=== PATIENT | male | born 1995 | race Caucasian/White ===

== ENCOUNTER 2018-08-03 14:21 | Inpatient (IN) | payer SELFPAY ==
[~2018-08-03] VITALS: Ht 193 cm; Wt 78.5 kg
[2018-08-03] MEDS ORDERED: fentaNYL PF VIAL 100 MCG/2 ML VIAL IV ONE (16:30)
[2018-08-03] MEDS ORDERED: IV NORMAL SALINE 1000ML BAG 1,000 ML IV ONE (16:45)
[2018-08-03] MEDS ORDERED: ONDANSETRON PF 4 MG/2 ML VIAL. IV ONE (16:45)
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
[2018-08-03] MEDS ORDERED: fentaNYL PF VIAL 100 MCG/2 ML VIAL ONE (17:00)
[2018-08-03 17:49] LABS: BASO # 0.1 x10^3/uL (0.0-0.2); BASO % 0 % (0-3); EOS % 0 % (0-3); HEMOGLOBIN 15.3 g/dL (13.0-17.5); LYMPH % 8 % (24-48); MEAN CORPUSCULAR HEMOGLOBIN 31 pg (25-35); MEAN CORPUSCULAR HGB CONC 35 g/dL (31-37); MEAN CORPUSCULAR VOLUME 89 fL (79-100); MONO # 0.9 x10^3/uL (0.0-1.1); MONO % 7 % (0-9); NEUT # 10.8 x10^3uL (1.8-7.7); NEUT % 84 % (31-73); PLATELET COUNT 195 x10^3/uL (140-400); RED BLOOD COUNT 4.93 x10^6/uL (4.30-5.70); RED CELL DISTRIBUTION WIDTH 12.8 % (11.5-14.5); WHITE BLOOD COUNT 12.9 x10^3/uL (4.0-11.0)
--- NOTE | 2018-08-03 18:00 | RAD ---
EXAM: 1. CT HEAD WITHOUT CONTRAST. 2. CT ORBITS WITHOUT CONTRAST. 3. CT CERVICAL SPINE WITHOUT CONTRAST. HISTORY: Fall, head and facial trauma, loss of consciousness, neck pain. TECHNIQUE: Computed tomography of the head, orbits and cervical spine was performed without intravenous contrast. COMPARISON: None. FINDINGS: There is a small hemorrhagic contusion along the left temporal lobe measuring 1.7 x 1.4 cm. There is no associated mass effect. Hayden-white differentiation is otherwise preserved. The ventricles are normal in size and position. Note is made of a cavum vergae. The visualized paranasal sinuses appear clear. No fractures are appreciated about either orbit. The intraorbital soft tissues and both globes appear normal. The temporal bones are unremarkable. The calvarium reveals no suspicious lesions. Alignment is maintained. The craniocervical junction is unremarkable. No fractures are identified. Intervertebral disc heights are maintained. There is no prevertebral soft tissue swelling. There is no central canal stenosis or neural foraminal stenosis. IMPRESSION: 1. 1.7 cm hemorrhagic contusion along the left temporal lobe. 2. No fractures about the orbits or intraorbital injury. 3. No cervical fracture or malalignment. These findings were called to Jamin by Timoteo Bourne on 08/03/2018 at 5:55 PM. *One or more of the following individualized dose reduction techniques were utilized for this examination: 1. Automated exposure control. 2. Adjustment of the mA and/or kV according to patient size. 3. Use of iterative reconstruction technique. Electronically signed by: Yasir Bourne MD (08/03/2018 5:56 PM) [facility]
[2018-08-03 18:05] LABS: CALCIUM 9.2 mg/dL (8.5-10.1); CREATININE 0.8 mg/dL (0.7-1.3); POTASSIUM 3.2 mmol/L (3.5-5.1)
[2018-08-03 18:09] LABS: ALBUMIN 4.1 g/dL (3.4-5.0); ALBUMIN/GLOBULIN RATIO 1.3 (1.0-1.7); TOTAL BILIRUBIN 0.6 mg/dL (0.2-1.0); TOTAL PROTEIN 7.2 g/dL (6.4-8.2)
[2018-08-03 20:05] VITALS: BP 144/87
--- NOTE | 2018-08-03 20:05 | NUR ---
pt admitted to room 113 from ED at this time. Ccollar in place, to remain in place via Dr Carver as reported from ED nurse. VSS, on room air. neurologically intact. splint noted to left UE and right LE. both extremities WNL. admission completed without difficultly. mother at bedside, to stay with pt overnight. pt and mother oriented to plan of care, call light, unit routines and diet; both voice understanding. call light in reach, will continue to closely monitor.
[2018-08-03] MEDS ORDERED: ONDANSETRON PF 4 MG/2 ML VIAL. IV PRN (20:45)
[2018-08-03] MEDS ORDERED: ACETAMINOPHEN 325 MG TABLET. PO PRN (20:45)
[2018-08-03] MEDS: IV NORMAL SALINE 1000ML BAG 1,000 ML IV SCH (20:45)
[2018-08-03] MEDS: fentaNYL PF VIAL 100 MCG/2 ML VIAL IV PRN ×2 (20:47→22:11)
[2018-08-03 21:00] VITALS: BP 129/70
[2018-08-03] MEDS: FAMOTIDINE 20 MG TABLET. PO SCH (21:00)
[2018-08-03] MEDS ORDERED: MULTIVIT INFUSN,ADULT 4,VIT K 10 ML, THIAMINE INJ 100 MG, FOLIC ACID INJ 1 MG in IV NOR... IV ONE (21:00)
[2018-08-03 22:00] VITALS: BP 135/68
[2018-08-03 23:00] VITALS: BP 119/72
[2018-08-04] VITALS (16 sets, daily range): BP systolic 116–140; BP diastolic 60–84
[2018-08-04] MEDS: fentaNYL PF VIAL 100 MCG/2 ML VIAL IV PRN ×4 (05:10→11:13)
--- NOTE | 2018-08-04 08:20 | RAD ---
Left hand radiograph 08/03/2018 5:14 PM INDICATION: Left thumb pain COMPARISON: None available TECHNIQUE: 3 views of the left hand are provided. FINDINGS: There is no acute fracture or dislocation. Bone mineralization is within normal limits. Joint spaces are maintained. Regional soft tissues are within normal limits. There is no soft tissue gas or osseous erosion. IMPRESSION: No acute fracture or dislocation. Electronically signed by: Sole Iglesias MD (08/04/2018 8:17 AM) [email or web address]
--- NOTE | 2018-08-04 08:23 | RAD ---
EXAM: 3 views right ankle DATE: 08/03/2018 5:05 PM INDICATION: Right ankle pain COMPARISON: No Prior FINDINGS: No evidence of acute fracture or dislocation. Ankle mortise is congruent. Talar dome is intact. No significant soft tissue swelling. IMPRESSION: No evidence of acute fracture or dislocation. Electronically signed by: Jeffery Chaudhari MD (08/04/2018 8:20 AM) [id number]
--- NOTE | 2018-08-04 08:35 | RAD ---
Chest radiograph 08/03/2018 5:05 PM INDICATION: Right ankle pain, fall COMPARISON: None available TECHNIQUE: Portable frontal semi-upright view of the chest is provided. FINDINGS: The cardiomediastinal silhouette is within normal limits. There are no pleural effusions. There is no pulmonary vascular congestion. There is no pneumothorax. The lungs are clear. No significant osseous abnormality is identified. IMPRESSION: No acute cardiopulmonary process. Electronically signed by: Sole Iglesias MD (08/04/2018 8:32 AM) [email or web address]
[2018-08-04] MEDS: FAMOTIDINE 20 MG TABLET. PO SCH ×2 (09:00→21:34)
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
[2018-08-04] MEDS: IV NORMAL SALINE 1000ML BAG 1,000 ML IV SCH (10:03)
--- NOTE | 2018-08-04 11:51 | RAD ---
CT of the head without contrast, 08/04/2018: HISTORY: Follow-up hemorrhagic contusion Noncontrast scans were obtained and compared to a study from 08/03/2018. A small focus of increased density in the posterior aspect of left temporal lobe is unchanged. There is a small adjacent lucency compatible with edema. The findings are again compatible with a brain contusion. The ventricles are within normal limits in size. There is a cavum septum pellucidum et vergae, which is a normal variant. There is no shift of the midline structures. No abnormal extra axial fluid collection or mass is seen. No calvarial fracture is evident. IMPRESSION: Stable left temporal lobe contusion. PQRS Compliance Statement: One or more of the following individualized dose reduction techniques were utilized for this examination: 1. Automated exposure control 2. Adjustment of the mA and/or kV according to patient size 3. Use of iterative reconstruction technique Electronically signed by: Renzo Carpio MD (08/04/2018 11:48 AM) [facility]
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
--- NOTE | 2018-08-04 12:12 | PDOC ---
Provider Note Provider Note Patient seen and examined hemorrhagic contusion along the left temporal lobe f/u CT head reviewed, stable ok to feed and transfer to floor will repeat CT head in AM will follow full consult to follow NELSON CASILLAS MD August 04, 2018 12:12
[2018-08-04] MEDS ORDERED: MORPHINE SULFATE 4 MG/ML VIAL. IV PRN (12:45)
[2018-08-04] MEDS ORDERED: MORPHINE SULFATE 2 MG/ML VIAL. IV PRN (12:45)
[2018-08-04] MEDS: HYDROcodone/APAP 5/325MG 1 TAB TABLET PO PRN ×2 (14:02→18:54)
--- NOTE | 2018-08-04 15:04 | NUR ---
SW following for discharge planning. Chart reviewed, pt is from home with parents, room air. No SW needs at this time. SW will continue to follow for any discharge planning needs.
--- NOTE | 2018-08-04 22:50 | NUR ---
Pt complain of pain, not manage by morphine sulfate IV. Dr. Abel notified. Orders received. Will continue to monitor.
[2018-08-05 03:51] VITALS: BP 126/75
[2018-08-05] MEDS: HYDROcodone/APAP 5/325MG 1 TAB TABLET PO PRN ×3 (05:36→19:14)
[2018-08-05] MEDS: fentaNYL PF VIAL 100 MCG/2 ML VIAL IV PRN ×3 (05:37→21:49)
[2018-08-05 07:00] VITALS: BP 122/75
--- NOTE | 2018-08-05 08:50 | RAD ---
RS Compliance Statement: One or more of the following individualized dose reduction techniques were utilized for this examination: 1. Automated exposure control 2. Adjustment of the mA and/or kV according to patient size 3. Use of iterative reconstruction technique CT head without contrast 08/05/2018 8:00 AM INDICATION: Hemorrhagic contusion COMPARISON: CT head August 04, 2018 TECHNIQUE: Multiple axial CT images of the head were obtained from skull base through the vertex without intravenous contrast. FINDINGS: Head: There is no intraparenchymal hematoma along the left temporal lobe measuring 1.9 x 1.6 cm, stable. There is suggestion of extra-axial blood products along the left temporal convexity measuring maximally 4 mm, stable. There is associated cytotoxic edema. No significant midline shift. Suprasellar cistern is patent. There is a cavum septum pellucidum. No hydrocephalus. Posterior fossa is normal. No new intracranial hemorrhage. Orbits are normal in appearance. Paranasal sinuses are well aerated. IMPRESSION: Stable left temporal lobe intraparenchymal hemorrhage compatible with contusion. Minimal extra-axial blood products along the left temporal convexity appears stable. Electronically signed by: Sole Iglesias MD (08/05/2018 8:48 AM) [id number]
[2018-08-05] MEDS: FAMOTIDINE 20 MG TABLET. PO SCH ×2 (09:50→19:42)
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
[2018-08-05 11:00] VITALS: BP 121/69
[2018-08-05] MEDS ORDERED: MORPHINE SULFATE 4 MG/ML VIAL. IV PRN (13:00)
--- NOTE | 2018-08-05 13:05 | PDOC ---
PROGRESS NOTES Subjective Subjective Resting in bed headache has improved Objective Objective Vital Signs Date Time Temp Pulse Resp B/P (MAP) Pulse Ox O2 Delivery O2 Flow Rate FiO2 08/05/18 11:05 98 Room Air 08/05/18 11:00 98.3 64 22 121/69 (86) 98.3 Intake and Output 08/05/18 07:00 Intake Total 240 ml Output Total 600 ml Balance -360 ml Intake Oral 240 ml Output Urine Total 600 ml # Voids 1 Physical Exam General: Alert, Oriented X3, Cooperative, No acute distress Neuro: Normal speech Plan Plan of Care reviewed CT head from today, stable could dc from NS standpoint, will need f/u appt and CT head in 6 weeks, no driving Comment Review of Relevant I have reviewed the following items salomon (where applicable) has been applied. Labs Laboratory Tests Test 08/03/18 17:05 White Blood Count 12.9 x10^3/uL (4.0-11.0) Red Blood Count 4.93 x10^6/uL (4.30-5.70) Hemoglobin 15.3 g/dL (13.0-17.5) Hematocrit 44.0 % (39.0-53.0) Mean Corpuscular Volume 89 fL (79-100) Mean Corpuscular Hemoglobin 31 pg (25-35) Mean Corpuscular Hemoglobin Concent 35 g/dL (31-37) Red Cell Distribution Width 12.8 % (11.5-14.5) Platelet Count 195 x10^3/uL (140-400) Neutrophils (%) (Auto) 84 % (31-73) Lymphocytes (%) (Auto) 8 % (24-48) Monocytes (%) (Auto) 7 % (0-9) Eosinophils (%) (Auto) 0 % (0-3) Basophils (%) (Auto) 0 % (0-3) Neutrophils # (Auto) 10.8 x10^3uL (1.8-7.7) Lymphocytes # (Auto) 1.0 x10^3/uL (1.0-4.8) Monocytes # (Auto) 0.9 x10^3/uL (0.0-1.1) Eosinophils # (Auto) 0.0 x10^3/uL (0.0-0.7) Basophils # (Auto) 0.1 x10^3/uL (0.0-0.2) Sodium Level 140 mmol/L (136-145) Potassium Level 3.2 mmol/L (3.5-5.1) Chloride Level 101 mmol/L (98-107) Carbon Dioxide Level 28 mmol/L (21-32) Anion Gap 11 (6-14) Blood Urea Nitrogen 10 mg/dL (8-26) Creatinine 0.8 mg/dL (0.7-1.3) Estimated GFR (Cockcroft-Gault) 122.0 BUN/Creatinine Ratio 13 (6-20) Glucose Level 94 mg/dL (70-99) Calcium Level 9.2 mg/dL (8.5-10.1) Total Bilirubin 0.6 mg/dL (0.2-1.0) Aspartate Amino Transf (AST/SGOT) 24 U/L (15-37) Alanine Aminotransferase (ALT/SGPT) 41 U/L (16-63) Alkaline Phosphatase 92 U/L (46-116) Total Protein 7.2 g/dL (6.4-8.2) Albumin 4.1 g/dL (3.4-5.0) Albumin/Globulin Ratio 1.3 (1.0-1.7) Medications Current Medications Fentanyl Citrate (Fentanyl 2ml Vial) 50 mcg 1X ONCE IV ; Start 08/03/18 at 16:30; Stop 08/03/18 at 16:30; Status DC Ondansetron HCl (Zofran) 4 mg 1X ONCE IV Last administered on 08/03/18at 16:45; Start 08/03/18 at 16:45; Stop 08/03/18 at 18:00; Status DC Sodium Chloride 1,000 ml @ 1,000 mls/hr 1X ONCE IV Last administered on 08/03/18at 17:43; Start 08/03/18 at 16:45; Stop 08/03/18 at 18:00; Status DC Fentanyl Citrate (Fentanyl 2ml Vial) 100 mcg STK-MED ONCE .ROUTE ; Start 08/03/18 at 17:00; Stop 08/03/18 at 17:01; Status DC Fentanyl Citrate (Fentanyl 2ml Vial) 50 mcg PRN Q1HR PRN IV PAIN Last administered on 08/04/18at 11:13; Start 08/03/18 at 19:30; Stop 08/04/18 at 19:29; Status DC Sodium Chloride 1,000 ml @ 75 mls/hr [id number] IV Last administered on 08/04/18 10:03; Start 08/03/18 at 19:18; Stop 08/04/18 at 19:17; Status DC Ondansetron HCl (Zofran) 4 mg PRN Q6HRS PRN IV NAUSEA/VOMITING Last administered on 08/04/18 13:12; Start 08/03/18 at 20:45 Famotidine (Pepcid) 20 mg BID PO Last administered on 08/05/18 09:50; Start 08/03/18 at 21:00 Acetaminophen (Tylenol) 650 mg PRN Q6HRS PRN PO headache/temp; Start 08/03/18 at 20:45 Multivitamins 10 ml/Thiamine HCl 100 mg/Folic Acid 1 mg/Sodium Chloride 1,011.2 ml @ 1,000.088 mls/hr 1X ONCE IV Last administered on 08/03/18 21:16; Start 08/03/18 at 21:00; Stop 08/03/18 at 22:00; Status DC Acetaminophen/ Hydrocodone Bitart (Lortab 5/325) 1 tab PRN Q4HRS PRN PO MILD PAIN Last administered on 08/04/18 18:54; Start 08/04/18 at 12:15 Acetaminophen/ Hydrocodone Bitart (Lortab 5/325) 2 tab PRN Q4HRS PRN PO MODERATE - SEVERE PAIN Last administered on 08/05/18 09:51; Start 08/04/18 at 12:15 Morphine Sulfate (Morphine Sulfate) 2 mg PRN Q2HR PRN IV PAIN Last administered on 08/04/18 13:05; Start 08/04/18 at 12:45 Morphine Sulfate (Morphine Sulfate) 4 mg PRN Q2HR PRN IV PAIN; Start 08/04/18 at 12:45 Fentanyl Citrate (Fentanyl 2ml Vial) 50 mcg PRN Q2HR PRN IV PAIN Last administered on 08/05/18 05:37; Start 08/04/18 at 23:00 Vitals/I & O Vital Sign - Last 24 Hours 08/04/18 08/04/18 08/04/18 08/04/18 13:05 13:40 13:45 14:02 Temp 97.7 97.7 Pulse 71 Resp 17 18 B/P (MAP) 126/66 (86) Pulse Ox 95 98 95 95 O2 Delivery Room Air Room Air Room Air Room Air 08/04/18 08/04/18 08/04/18 08/04/18 15:00 18:54 19:00 19:54 Temp 98.0 98.6 98.0 98.6 Pulse 63 74 Resp 16 16 B/P (MAP) 126/63 (84) 128/82 (97) Pulse Ox 100 100 O2 Delivery Room Air Room Air Room Air Room Air 08/04/18 08/04/18 08/05/18 08/05/18 20:00 23:00 03:51 05:36 Temp 98.5 98.0 98.5 98.0 Pulse 71 65 Resp 16 16 B/P (MAP) 131/84 (100) 126/75 (92) Pulse Ox 97 99 O2 Delivery Room Air Room Air Room Air Room Air 08/05/18 08/05/18 08/05/18 08/05/18 05:37 06:07 07:00 07:30 Temp 98.1 98.1 Pulse 82 Resp 22 B/P (MAP) 122/75 (91) Pulse Ox 98 O2 Delivery Room Air Room Air Room Air Room Air 08/05/18 08/05/18 08/05/18 09:51 11:00 11:05 Temp 98.3 98.3 Pulse 64 Resp 22 B/P (MAP) 121/69 (86) Pulse Ox 98 97 98 O2 Delivery Room Air Room Air Room Air Intake and Output 08/04/18 08/04/18 08/05/18 15:00 23:00 07:00 Intake Total 120 ml 120 ml Output Total 600 ml 0 ml Balance -480 ml 120 ml PARVIN PATRICK [employer] August 05, 2018 13:05
[2018-08-05] MEDS ORDERED: POTASSIUM CHLORIDE 20 MEQ TABLET.ER. PO ONE (14:45)
--- NOTE | 2018-08-05 14:47 | NUR ---
SW following for discharge planning. Discussed with RN, had CT this morning. RN advised pt is not discharging today, due to Dr Howe wanting labs checked in the morning and a PT/OT eval, as well as a tox screen. SW met with pt to give self pay resources. SW will continue to follow.
[2018-08-05 15:00] VITALS: BP 114/76
[2018-08-05 15:34] LABS: BILIRUBIN,URINE NEGATIVE (NEG); CLARITY,URINE HAZY; COLOR,URINE YELLOW; NITRITE,URINE NEGATIVE (NEG); PROTEIN,URINE NEGATIVE (NEG-TRACE)
[2018-08-05 15:38] LABS: BACTERIA,URINE 0 /HPF (0-FEW); RBC,URINE 0 /HPF (0-2); SQUAMOUS EPITHELIAL CELL,UR FEW /LPF
[2018-08-05 15:59] LABS: BARBITURATES NEG (NEG); BENZODIAZEPINES NEG (NEG); CANNABINOIDS POS (NEG); COCAINE NEG (NEG); METHADONE NEG (NEG); OPIATES POS (NEG); PHENCYCLIDINE NEG (NEG)
[2018-08-05 16:00] LABS: AMPHETAMINE/METHAMPHETAMINE NEG (NEG)
[2018-08-05 19:20] VITALS: BP 114/71
--- NOTE | 2018-08-05 22:00 | NUR ---
Pt complain of constipation. Dr. Howe notified. Orders received. Will continue to monitor.
[2018-08-05] MEDS ORDERED: MAGNESIUM HYDROXIDE 2,400 MG/30 ML ORAL.SUSP. PO PRN (22:15)
[2018-08-05 23:23] VITALS: BP 123/69
[2018-08-06 03:01] VITALS: BP 123/76
[2018-08-06] MEDS: fentaNYL PF VIAL 100 MCG/2 ML VIAL IV PRN (03:05)
[2018-08-06] MEDS: HYDROcodone/APAP 5/325MG 1 TAB TABLET PO PRN ×4 (03:25→17:29)
[2018-08-06 06:59] LABS: BASO % 0 % (0-3); EOS # 0.1 x10^3/uL (0.0-0.7); EOS % 2 % (0-3); HEMATOCRIT 46.5 % (39.0-53.0); HEMOGLOBIN 16.4 g/dL (13.0-17.5); LYMPH # 1.1 x10^3/uL (1.0-4.8); LYMPH % 18 % (24-48); MEAN CORPUSCULAR HEMOGLOBIN 31 pg (25-35); MEAN CORPUSCULAR HGB CONC 35 g/dL (31-37); MEAN CORPUSCULAR VOLUME 89 fL (79-100); MONO # 0.4 x10^3/uL (0.0-1.1); MONO % 7 % (0-9); NEUT # 4.3 x10^3uL (1.8-7.7); NEUT % 73 % (31-73); PLATELET COUNT 198 x10^3/uL (140-400); RED BLOOD COUNT 5.23 x10^6/uL (4.30-5.70); RED CELL DISTRIBUTION WIDTH 12.8 % (11.5-14.5)
[2018-08-06 07:00] VITALS: BP 111/61
[2018-08-06 07:12] LABS: CALCIUM 9.6 mg/dL (8.5-10.1); CREATININE 0.9 mg/dL (0.7-1.3); GFR 106.5; POTASSIUM 3.7 mmol/L (3.5-5.1)
[2018-08-06] MEDS ORDERED: POTASSIUM CHLORIDE 20 MEQ TABLET.ER. PO SCH (08:00)
[2018-08-06] MEDS ORDERED: DOCUSATE SODIUM 100 MG CAPSULE. PO SCH (09:00)
[2018-08-06] MEDS: FAMOTIDINE 20 MG TABLET. PO SCH (09:45)
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
--- NOTE | 2018-08-06 10:42 | NUR ---
SW following for discharge planning. Discussed with RN, PT/OT working with pt today. Pt is self pay so does not qualify for any services upon discharge. Pt has received self pay resource packet. No further SW needs. Possible discharge today.
[2018-08-06 11:00] VITALS: BP 112/58
[2018-08-06 15:00] VITALS: BP 124/77
--- NOTE | 2018-08-06 15:40 | PDOC3 ---
Discharge Summary Date of Admission: August 04, 2018 Date of Discharge: August 06, 2018 Follow-Up: 3-5 days Admitting Diagnosis comment: discharge dx 1. 1.7 cm hemorrhagic contusion along the left temporal lobe. 2. No fractures about the orbits or intraorbital injury. 3. No cervical fracture or malalignment. 4. hypokalemia 5. THC use plan neurochecks q 4 hrs f/u ct head neurosurgery following 46 min pt exam, chart review, > 50% of time spent with exam, chart review, pt care coordination ///high risk patient Vitals Vitals Vital Signs Date Time Temp Pulse Resp B/P (MAP) Pulse Ox O2 Delivery O2 Flow Rate FiO2 08/06/18 09:44 98 Room Air 08/06/18 07:00 98.0 72 18 111/61 (78) 98.0 Physical Exam Physical Exam GEN.: Currently being examined , unchanged black eye, oriented normal speech HEENT: PERRLA, EOMI NECK: GOOD ROM LUNGS: Clear to auscultation without rhonchi or wheezing HEART: RRR, S1, S2 present. Peripheral pulses intact ABDOMEN: Soft, nontender. Positive bowel sounds no organomegaly EXTREMITIES: The right ankle has clean dry and intact bandaging as does the left wrist NEUROLOGIC: Normal speech, normal tone. A&O x 3 PSYCHIATRIC: He seems ANXOIUS SKIN: No ulcerations or rashes VASCULAR: Good capillary refill General: Alert, Oriented X3, Cooperative, mild distress Heart: Regular rate, Normal S1, Normal S2 Lungs: Clear Abdomen: Normal bowel sounds, Soft, No tenderness Extremities: No clubbing, No cyanosis, No edema, Normal pulses Brief Hospital Course Mr. Vela is a 23 old [sex] who presented with [ closed head injury, intracranial hemorrhage] CONDITION AT DISCHARGE: Improved Discharge Medications Current Medications Fentanyl Citrate (Fentanyl 2ml Vial) 50 mcg 1X ONCE IV ; Start 08/03/18 at 16:30; Stop 08/03/18 at 16:30; Status DC Ondansetron HCl (Zofran) 4 mg 1X ONCE IV Last administered on 08/03/18at 16:45; Start 08/03/18 at 16:45; Stop 08/03/18 at 18:00; Status DC Sodium Chloride 1,000 ml @ 1,000 mls/hr 1X ONCE IV Last administered on at 17:43; Start 08/03/18 at 16:45; Stop 08/03/18 at 18:00; Status DC Fentanyl Citrate (Fentanyl 2ml Vial) 100 mcg STK-MED ONCE .ROUTE ; Start 08/03/18 at 17:00; Stop 08/03/18 at 17:01; Status DC Fentanyl Citrate (Fentanyl 2ml Vial) 50 mcg PRN Q1HR PRN IV PAIN Last administered on 08/04/18at 11:13; Start 08/03/18 at 19:30; Stop 08/04/18 at 19:29; Status DC Sodium Chloride 1,000 ml @ 75 mls/hr [id number] IV Last administered on 08/04/18at 10:03; Start 08/03/18 at 19:18; Stop 08/04/18 at 19:17; Status DC Ondansetron HCl (Zofran) 4 mg PRN Q6HRS PRN IV NAUSEA/VOMITING Last administered on 08/04/18at 13:12; Start 08/03/18 at 20:45 Famotidine (Pepcid) 20 mg BID PO Last administered on 08/06/18at 09:45; Start 08/03/18 at 21:00 Acetaminophen (Tylenol) 650 mg PRN Q6HRS PRN PO headache/temp; Start 08/03/18 at 20:45 Multivitamins 10 ml/Thiamine HCl 100 mg/Folic Acid 1 mg/Sodium Chloride 1,011.2 ml @ 1,000.088 mls/hr 1X ONCE IV Last administered on 08/03/18at 21:16; Start 08/03/18 at 21:00; Stop 08/03/18 at 22:00; Status DC Acetaminophen/ Hydrocodone Bitart (Lortab 5/325) 1 tab PRN Q4HRS PRN PO MILD PAIN Last administered on 08/04/18 18:54; Start 08/04/18 at 12:15 Acetaminophen/ Hydrocodone Bitart (Lortab 5/325) 2 tab PRN Q4HRS PRN PO MODERATE - SEVERE PAIN Last administered on 5/8/19at 14:35; Start 08/04/18 at 12:15 Morphine Sulfate (Morphine Sulfate) 2 mg PRN Q2HR PRN IV MODERATE PAIN Last administered on 08/04/18at 13:05; Start 08/04/18 at 12:45 Morphine Sulfate (Morphine Sulfate) 4 mg PRN Q2HR PRN IV PAIN; Start 08/04/18 at 12:45; Stop 08/05/18 at 12:56; Status DC Fentanyl Citrate (Fentanyl 2ml Vial) 50 mcg PRN Q2HR PRN IV PAIN Last administered on 08/06/18at 03:05; Start 08/04/18 at 23:00 Morphine Sulfate (Morphine Sulfate) 4 mg PRN Q2HRS PRN IV SEVERE PAIN; Start 08/05/18 at 13:00 Potassium Chloride (Klor-Con) 40 meq 1X ONCE PO Last administered on 08/05/18at 15:10; Start 08/05/18 at 14:45; Stop 08/05/18 at 14:46; Status DC Potassium Chloride (Klor-Con) 20 meq [id number] PO Last administered on 08/06/18at 09:45; Start 08/06/18 at 08:00 Magnesium Hydroxide (Milk Of Magnesia) 2,400 mg PRN DAILY PRN PO CONSTIPATION Last administered on 08/05/18 22:29; Start 08/05/18 at 22:15 Docusate Sodium (Colace) 100 mg BID PO Last administered on 08/06/18 09:44; Start 08/06/18 at 09:00 Vital Signs Vital Signs Date Time Temp Pulse Resp B/P (MAP) Pulse Ox O2 Delivery O2 Flow Rate FiO2 08/06/18 14:35 98 Room Air 08/06/18 11:00 98.4 59 18 112/58 (76) 98.4 Labs Laboratory Tests Test 08/05/18 15:30 08/06/18 04:33 Urine Collection Type Unknown Urine Color Yellow Urine Clarity Hazy Urine pH 7.0 Urine Specific [place] 1.015 Urine Protein Negative mg/dL (NEG-TRACE) Urine Glucose (UA) Negative mg/dL (NEG) Urine Ketones (Stick) Negative mg/dL (NEG) Urine Blood Negative (NEG) Urine Nitrite Negative (NEG) Urine Bilirubin Negative (NEG) Urine Urobilinogen Dipstick 4.0 mg/dL (0.2 mg/dL) Urine Leukocyte Esterase Moderate (NEG) Urine RBC 0 /HPF (0-2) Urine WBC 11-20 /HPF (0-4) Urine Squamous Epithelial Cells Few /LPF Urine Bacteria 0 /HPF (0-FEW) Urine Mucus Mod /LPF Urine Opiates Screen Pos (NEG) Urine Methadone Screen Neg (NEG) Urine Barbiturates Neg (NEG) Urine Phencyclidine Screen Neg (NEG) Urine Amphetamine/Methamphetamine Neg (NEG) Urine Benzodiazepines Screen Neg (NEG) Urine Cocaine Screen Neg (NEG) Urine Cannabinoids Screen Pos (NEG) Urine Ethyl Alcohol Neg (NEG) White Blood Count 6.0 x10^3/uL (4.0-11.0) Red Blood Count 5.23 x10^6/uL (4.30-5.70) Hemoglobin 16.4 g/dL (13.0-17.5) Hematocrit 46.5 % (39.0-53.0) Mean Corpuscular Volume 89 fL (79-100) Mean Corpuscular Hemoglobin 31 pg (25-35) Mean Corpuscular Hemoglobin Concent 35 g/dL (31-37) Red Cell Distribution Width 12.8 % (11.5-14.5) Platelet Count 198 x10^3/uL (140-400) Neutrophils (%) (Auto) 73 % (31-73) Lymphocytes (%) (Auto) 18 % (24-48) Monocytes (%) (Auto) 7 % (0-9) Eosinophils (%) (Auto) 2 % (0-3) Basophils (%) (Auto) 0 % (0-3) Neutrophils # (Auto) 4.3 x10^3uL (1.8-7.7) Lymphocytes # (Auto) 1.1 x10^3/uL (1.0-4.8) Monocytes # (Auto) 0.4 x10^3/uL (0.0-1.1) Eosinophils # (Auto) 0.1 x10^3/uL (0.0-0.7) Basophils # (Auto) 0.0 x10^3/uL (0.0-0.2) Sodium Level 137 mmol/L (136-145) Potassium Level 3.7 mmol/L (3.5-5.1) Chloride Level 99 mmol/L (98-107) Carbon Dioxide Level 28 mmol/L (21-32) Anion Gap 10 (6-14) Blood Urea Nitrogen 10 mg/dL (8-26) Creatinine 0.9 mg/dL (0.7-1.3) Estimated GFR (Cockcroft-Gault) 106.5 Glucose Level 83 mg/dL (70-99) Calcium Level 9.6 mg/dL (8.5-10.1) Laboratory Tests Test 08/06/18 04:33 White Blood Count 6.0 x10^3/uL (4.0-11.0) Red Blood Count 5.23 x10^6/uL (4.30-5.70) Hemoglobin 16.4 g/dL (13.0-17.5) Hematocrit 46.5 % (39.0-53.0) Mean Corpuscular Volume 89 fL (79-100) Mean Corpuscular Hemoglobin 31 pg (25-35) Mean Corpuscular Hemoglobin Concent 35 g/dL (31-37) Red Cell Distribution Width 12.8 % (11.5-14.5) Platelet Count 198 x10^3/uL (140-400) Neutrophils (%) (Auto) 73 % (31-73) Lymphocytes (%) (Auto) 18 % (24-48) Monocytes (%) (Auto) 7 % (0-9) Eosinophils (%) (Auto) 2 % (0-3) Basophils (%) (Auto) 0 % (0-3) Neutrophils # (Auto) 4.3 x10^3uL (1.8-7.7) Lymphocytes # (Auto) 1.1 x10^3/uL (1.0-4.8) Monocytes # (Auto) 0.4 x10^3/uL (0.0-1.1) Eosinophils # (Auto) 0.1 x10^3/uL (0.0-0.7) Basophils # (Auto) 0.0 x10^3/uL (0.0-0.2) Sodium Level 137 mmol/L (136-145) Potassium Level 3.7 mmol/L (3.5-5.1) Chloride Level 99 mmol/L (98-107) Carbon Dioxide Level 28 mmol/L (21-32) Anion Gap 10 (6-14) Blood Urea Nitrogen 10 mg/dL (8-26) Creatinine 0.9 mg/dL (0.7-1.3) Estimated GFR (Cockcroft-Gault) 106.5 Glucose Level 83 mg/dL (70-99) Calcium Level 9.6 mg/dL (8.5-10.1) Allergies Allergies Coded Allergies Type Severity Reaction Last Updated Verified No Known Drug Allergies 08/03/18 No Disposition/Orders: D/C to Home Patient Instructions d/c planning 47 min EDITH MARAVILLA MD August 06, 2018 15:40
[2018-08-06] MEDS ORDERED: ACET325T9 PO (15:42)
[2018-08-06] MEDS ORDERED: FAMO20TA5 PO (15:42)
--- NOTE | 2018-08-06 15:42 | DISCH ---
DISCHARGE INSTRUCTIONS Condition on Discharge Condition on Discharge: Guarded Activity After Discharge Activity Instructions for Disc: Avoid exertion Lifting Instructions after Dis: No heavy lifting, No pulling or pushing, Do not lift >10 pounds Exercise Instruction after Dis: Walk 10 min, 3 x per day Driving Instructions after Dis: Do not drive Diet after Discharge Diet after Discharge: Regular Checks after Discharge Checks after discharge: Check blood press - daily Contacting the DR. after DC Call your doctor for: If your condition worsens EDITH MARAVILLA MD August 06, 2018 15:42
--- NOTE | 2018-08-06 17:58 | NUR ---
Pt was discharged to home at 1745 today in stable condition with all personal belongings after reviewing all pertinent information including education, medications, follow up and at home care. Pt was escorted by staff and family and driven home by his mom.
== END 2018-08-06 17:45 | disposition home or self-care (01) | DRG 84 ==
LOC: ER 14:21 → 1 WEST ICU 18:30 → 4 NORTH 08-04 14:20
PROVIDERS: ADMIT Internal Medicine; ATTEND Internal Medicine
DX: S06.329A Contusion and laceration of left cerebrum with loss of consciousness of unspecified duration, initial encounter (principal); W10.9XXA Fall (on) (from) unspecified stairs and steps, initial encounter; F12.90 Cannabis use, unspecified, uncomplicated; E87.6 Hypokalemia; Y93.89 Activity, other specified; Y92.89 Other specified places as the place of occurrence of the external cause; Z82.49 Family history of ischemic heart disease and other diseases of the circulatory system; Y99.8 Other external cause status
CPT/HCPCS: 36415; 70450; 70480; 71045; 72125; 73130; 73610; 80048; 80053; 80307; 81001; 85025; 87086; 96374; J2270; J2405; J3010; J7030; 99285-25

== ENCOUNTER 2018-08-11 19:38 | Emergency (ER) | payer SELFPAY ==
[~2018-08-11] VITALS: Ht 190.5 cm; Wt 79.4 kg
[~2018-08-11 19:38] MED LIST: ACET325T9 PO; FAMO20TA5 PO
[2018-08-11 20:39] VITALS: BP 112/73
--- NOTE | 2018-08-11 21:35 | PHYS DOC ---
Past Medical History Past Medical History: No Pertinent History (ROBBY COLEY APRN) Past Surgical History: No Surgical History (ROBBY COLEY APRN) Alcohol Use: Occasionally Drug Use: None (ROBBY COLEY APRN) Adult General Chief Complaint Chief Complaint: BACK PAIN - NO INJURY HPI HPI Patient is a 23-year-old male who presents to ER with sacrum pain radiating down the left leg. He was recently admitted to the hospital after celebrating his 23st birthday and had a fall down cement steps and had several orthopedic injuries and an intracranial bleed. He did not have the symptom he presents with on discharge from the hospital on Saturday but they started after discharge. He also had periumbilical abdominal pain and has not defecated in 3 days. He rates his pain as 10/10 and character as throbbing/aching. Has tried Tylenol and Ibuprofen at home and it is not helping. (ROBBY COLEY APRN) Review of Systems Review of Systems Constitutional: Denies fever or chills [] Eyes: Denies change in visual acuity, redness, or eye pain [] HENT: Denies nasal congestion or sore throat [] Respiratory: Denies cough or shortness of breath [] Cardiovascular: No additional information not addressed in HPI [] GI: Report periumbilical abdominal pain but denies nausea, vomiting, bloody stools or diarrhea [] : Denies dysuria or hematuria [] Musculoskeletal: Reports back pain in the sacral area radiating down the left leg or joint pain [] Integument: Denies rash or skin lesions [] Neurologic: Denies headache, focal weakness or sensory changes [] Endocrine: Denies polyuria or polydipsia [] Complete systems were reviewed and found to be within normal limits, except as documented in this note. (ROBBY COLEY APRN) Current Medications Current Medications Current Medications Medications (Trade) Dose Ordered Sig/Tong Start Time Stop Time Status Last Admin Dose Admin Cyclobenzaprine HCl (Flexeril) 10 mg 1X ONCE 08/11/18 22:00 08/11/18 22:01 DC 08/11/18 21:56 10 MG (ERICKA TALBOT MD) Allergies Allergies Allergies Coded Allergies Type Severity Reaction Last Updated Verified No Known Drug Allergies 08/03/18 No (ERICKA TALBOT MD) Physical Exam Physical Exam Constitutional: Well developed, well nourished, no acute distress, non-toxic appearance. [] HENT: Normocephalic, atraumatic, bilateral external ears normal, oropharynx moist, no oral exudates, nose normal. [] Eyes: PERRLA, EOMI, conjunctiva normal, no discharge. [] Neck: Normal range of motion, no tenderness, supple, no stridor. [] Cardiovascular:Heart rate regular rhythm, no murmur [] Lungs & Thorax: Bilateral breath sounds clear to auscultation [] Abdomen: Bowel sounds normal, soft, periumbilical tenderness, no masses, no pulsatile masses. [] Skin: Warm, dry, no erythema, no rash. [] Back: No tenderness except to sacrum, no CVA tenderness. [] Extremities: No tenderness, no cyanosis, no clubbing, ROM intact, no edema. [] Neurologic: Alert and oriented X 3, normal motor function, normal sensory function, no focal deficits noted. [] Psychologic: Affect normal, judgement normal, mood normal. [] (ROBBY COLEY APRN) Current Patient Data Vital Signs Vital Signs Date Time Temp Pulse Resp B/P (MAP) Pulse Ox O2 Delivery O2 Flow Rate FiO2 08/11/18 20:39 98.8 99 24 112/73 (86) 97 Room Air 98.8 (ERICKA TALBOT MD) EKG EKG [] (ROBBY COLEY APRN) Radiology/Procedures Radiology/Procedures []PATIENT: LUCILA TREVIZOACCOUNT: [id number]#: [id number] : 1995 LOCATION: ER AGE: 23 SEX: M EXAM STATUS: REG ER ORD. PHYSICIAN: ROBBY COLEY APRN REASON: periumbilical pain; r/o constipation PROCEDURE: ABDOMEN SUPINE & UPRIGHT Two-view abdomen radiographs 08/11/2018 CLINICAL HISTORY: Periumbilical pain. Constipation. Supine and erect AP digital radiographs of the abdomen/pelvis were obtained. The lung bases are clear. The abdominal bowel gas pattern is nonobstructive. A moderate amount of stool is seen throughout the colon. There is no evidence of free air. No radiopaque calculus is seen. The osseous structures are grossly intact. IMPRESSION: Nonobstructive bowel gas pattern. A moderate amount of stool is seen throughout the colon. Electronically signed by: Jadon Esquivel MD (08/11/2018 10:09 PM) [facility] Prelim rad of Sacrum x-ray by Dr. Talbot No acute fracture or dislocation. PATIENT: LUCILA TREVIZO ACCOUNT: [id number] : 1995 LOCATION: ER AGE: 23 SEX: M EXAM STATUS: REG ER ORD. PHYSICIAN: ROBBY COLEY APRN REASON: periumbilical pain; r/o constipation PROCEDURE: SACRUM & COCCYX 3V Three-view sacrum/coccygeal radiographs 08/11/2018 CLINICAL HISTORY: Sacral/coccygeal pain. 2 AP and a lateral digital radiographs of the sacrum/coccyx were obtained. No sacral or coccygeal fracture is noted. No significant degenerative changes are seen involving either SI joint. A moderate amount of stool is seen involving the rectum. IMPRESSION: No acute abnormality is seen. Electronically signed by: Jadon Esquivel MD (08/11/2018 10:11 PM) [facility] (ROBBY COLEY APRN) Course & Med Decision Making Course & Med Decision Making Pertinent Labs and Imaging studies reviewed. (See chart for details) Will get x-ray of abdomen to check for constipation, x-ray of sacrum and give Flexeril to see if helps pain. Appears to have constipation that could be causing the sciatica. Recommended to patient over the counter Miralax and Enema. Will prescribe flexeril to help with sciatica until constipation clears up. (ROBBY COLEY APRN) Course & Med Decision Making Staff Physician Addendum: I was working in the ER during the course of this patient's visit. I was available for consultation as needed, but I was not directly involved in the care of this patient. (ERICKA TALBOT MD) Dragon Disclaimer Dragon Disclaimer This electronic medical record was generated, in whole or in part, using a voice recognition dictation system. (ROBBY COLEY APRN) Departure Departure Impression: Primary Impression: Constipation Additional Impression: Sciatica Disposition: 01 HOME, SELF-CARE Condition: STABLE Referrals: NO PCP (PCP) Patient Instructions: Constipation, Adult, Sciatica Additional Instructions: Please get over the counter Miralax and Enema if needed. Take Flexeril as needed for sciatica pain. Scripts Cyclobenzaprine Hcl (CYCLOBENZAPRINE HCL) 10 Mg Tablet 1 TAB PO TID PRN for MUSCLE SPASMS, #20 TAB Prov: ROBBY COLEY APRN 08/11/18 Problem Qualifiers Primary Impression: Constipation Constipation type: drug induced constipation Qualified Codes: K59.03 - Drug induced constipation Additional Impression: Sciatica Laterality: left Qualified Codes: M54.32 - Sciatica, left side ROBBY COLEY APRN August 11, 2018 21:35 ERICKA TALBOT MD August 12, 2018 06:38
[2018-08-11] MEDS ORDERED: CYCLOBENZAPRINE 10 MG TABLET. PO ONE (22:00)
--- NOTE | 2018-08-11 22:13 | RAD ---
Two-view abdomen radiographs 08/11/2018 CLINICAL HISTORY: Periumbilical pain. Constipation. Supine and erect AP digital radiographs of the abdomen/pelvis were obtained. The lung bases are clear. The abdominal bowel gas pattern is nonobstructive. A moderate amount of stool is seen throughout the colon. There is no evidence of free air. No radiopaque calculus is seen. The osseous structures are grossly intact. IMPRESSION: Nonobstructive bowel gas pattern. A moderate amount of stool is seen throughout the colon. Electronically signed by: Jadon Esquivel MD (08/11/2018 10:09 PM) [facility]
--- NOTE | 2018-08-11 22:14 | RAD ---
Three-view sacrum/coccygeal radiographs 08/11/2018 CLINICAL HISTORY: Sacral/coccygeal pain. 2 AP and a lateral digital radiographs of the sacrum/coccyx were obtained. No sacral or coccygeal fracture is noted. No significant degenerative changes are seen involving either SI joint. A moderate amount of stool is seen involving the rectum. IMPRESSION: No acute abnormality is seen. Electronically signed by: Jadon Esquivel MD (08/11/2018 10:11 PM) [facility]
[2018-08-11] MEDS ORDERED: CYCL10TA2 PO (22:19)
== END 2018-08-11 22:20 | disposition home or self-care (01) ==
LOC: ER 19:38
DX: K59.03 Drug induced constipation (principal); M54.32 Sciatica, left side; M53.3 Sacrococcygeal disorders, not elsewhere classified; W10.8XXA Fall (on) (from) other stairs and steps, initial encounter; Y93.89 Activity, other specified; Y92.89 Other specified places as the place of occurrence of the external cause; Y99.8 Other external cause status
CPT/HCPCS: 72220; 74021; 99284

== ENCOUNTER 2018-10-28 18:48 | Emergency (ER) | payer SELFPAY ==
[~2018-10-28] VITALS: Ht 188 cm; Wt 84.4 kg
[~2018-10-28 18:48] MED LIST changes: +CYCL10TA2 PO
[2018-10-28 19:51] VITALS: BP 134/84
[2018-10-28] MEDS ORDERED: LIDOCAINE 1% PF 2 ML VIAL. INJ ONE (20:00)
[2018-10-28] MEDS ORDERED: NEOMY/BACITR/POLYMYXIN OINT PACKET. TP ONE (20:15)
[2018-10-28] MEDS ORDERED: DIPHTH,PERTUSS(ACELL),TET TOX 0.5 ML DISP.SYRIN. VAX IM ONE (21:30)
--- NOTE | 2018-10-28 21:35 | PHYS DOC ---
Past Medical History Past Medical History: Other Additional Past Medical Histor: brain bleed 3 mons ago. Past Surgical History: No Surgical History Alcohol Use: None Drug Use: None Adult General Chief Complaint Chief Complaint: LACERATION/AVULSION HPI HPI Patient is a 23 year old male who presents to the ER with complaints of a laceration to his right index finger on the palmar surface proximal to the PIP. He is unsure of when his last tetanus shot was. Pt states that he was helping to life a garage door when the handle broke and cut his finger. Review of Systems Review of Systems Constitutional: Denies fever or chills [] Eyes: Denies change in visual acuity, redness, or eye pain [] HENT: Denies nasal congestion or sore throat [] Respiratory: Denies cough or shortness of breath [] Cardiovascular: No additional information not addressed in HPI [] GI: Denies abdominal pain, nausea, vomiting, bloody stools or diarrhea [] : Denies dysuria or hematuria [] Musculoskeletal: Denies back pain or joint pain [] Integument: Denies rash or skin lesions [] Neurologic: Denies headache, focal weakness or sensory changes [] Endocrine: Denies polyuria or polydipsia [] All other systems were reviewed and found to be within normal limits, except as documented in this note. Current Medications Current Medications Current Medications Medications (Trade) Dose Ordered Sig/Tong Start Time Stop Time Status Last Admin Dose Admin Lidocaine HCl (Xylocaine-Mpf 1% 2ml Vial) 4 ml 1X ONCE 10/28/18 20:00 10/28/18 20:01 DC Neomycin/ Polymyxin/ Bacitracin (Triple Antibiotic Ointment) 1 pkt 1X ONCE 10/28/18 20:15 10/28/18 20:16 DC Allergies Allergies Allergies Coded Allergies Type Severity Reaction Last Updated Verified No Known Drug Allergies 08/03/18 No Physical Exam Physical Exam Constitutional: Well developed, well nourished, no acute distress, non-toxic appearance. [] HENT: Normocephalic, atraumatic, bilateral external ears normal, oropharynx moist, no oral exudates, nose normal. [] Eyes: PERRLA, EOMI, conjunctiva normal, no discharge. [] Neck: Normal range of motion, no tenderness, supple, no stridor. [] Cardiovascular:Heart rate regular rhythm, no murmur [] Lungs & Thorax: Bilateral breath sounds clear to auscultation [] Abdomen: Bowel sounds normal, soft, no tenderness, no masses, no pulsatile masses. [] Skin: Warm, dry, no erythema, no rash. [] Back: No tenderness, no CVA tenderness. [] Extremities: No tenderness, no cyanosis, no clubbing, ROM intact, no edema. [] Neurologic: Alert and oriented X 3, normal motor function, normal sensory function, no focal deficits noted. [] Psychologic: Affect normal, judgement normal, mood normal. [] Current Patient Data Vital Signs Vital Signs Date Time Temp Pulse Resp B/P (MAP) Pulse Ox O2 Delivery O2 Flow Rate FiO2 10/28/18 19:51 98.0 90 18 134/84 (101) 98 Room Air 98.0 EKG EKG [] Radiology/Procedures Radiology/Procedures [] Course & Med Decision Making Course & Med Decision Making Pertinent Labs and Imaging studies reviewed. (See chart for details) [] Dragon Disclaimer Dragon Disclaimer This electronic medical record was generated, in whole or in part, using a voice recognition dictation system. Departure Departure Impression: Primary Impression: Laceration of right index finger w/o foreign body w/o damage to nail Additional Impression: Need for tetanus, diphtheria, and acellular pertussis (Tdap) vaccine Disposition: 01 HOME, SELF-CARE Condition: STABLE Referrals: NO PCP (PCP) Patient Instructions: Laceration Care, Adult, [id number], VIS, Tetanus, Diphtheria, and Pertussis (Tdap) - CDC Additional Instructions: TYlenol or ibuprofen as needed for pain. Keep the area clean and dry. Apply a clean bandage and antibiotic ointment twice daily as needed. Wear the finger splint provided until sutures are removed. Return to the ER or see your primary care doctor in 10-14 days to have sutures removed. Return sooner if symptoms worsen. Laceration/Wound Repair Laceration/Wound Repair : Wound Location: upper extremity (right index finger) Wound's Depth, Shape: superficial Wound Length (cm): 3 Wound Explored: clean Irrigated w/ Saline (ccs): 100 Betadine Prep?: No Anesthesia: 1% Lidocaine Volume Anesthetic (ccs): 4 Wound Debrided: minimal Wound Repaired With: sutures Suture Size/Type: 4:0 (ethilon) Number of Sutures: 4 Layer Closure?: No Sterile Dressing Applied?: No Splint Applied?: Yes (aluminum finger splint) Sling Applied?: No Progress pt tolerated procedure well, minimal blood loss, no complications Problem Qualifiers Primary Impression: Laceration of right index finger w/o foreign body w/o damage to nail Encounter type: initial encounter Qualified Codes: S61.210A - Laceration without foreign body of right index finger without damage to nail, initial encounter [facility] DIRECT[facility] Oct 28, 2018 21:35
== END 2018-10-28 21:58 | disposition home or self-care (01) ==
LOC: ER 18:48
DX: S61.210A Laceration without foreign body of right index finger without damage to nail, initial encounter (principal); Y28.8XXA Contact with other sharp object, undetermined intent, initial encounter; Y93.89 Activity, other specified; Y92.89 Other specified places as the place of occurrence of the external cause; Y99.8 Other external cause status
CPT/HCPCS: 12002; 90471; 90715; 99283

== ENCOUNTER 2019-06-27 07:35 | Emergency (ER) | payer SELFPAY ==
[~2019-06-27] VITALS: Ht 170.2 cm; Wt 81.8 kg
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
[2019-06-27 07:53] LABS: BASO # 0.1 x10^3/uL (0.0-0.2); BASO % 1 % (0-3); EOS % 0 % (0-3); HEMATOCRIT 48.7 % (39.0-53.0); HEMOGLOBIN 16.7 g/dL (13.0-17.5); LYMPH # 1.2 x10^3/uL (1.0-4.8); LYMPH % 11 % (24-48); MEAN CORPUSCULAR HEMOGLOBIN 31 pg (25-35); MEAN CORPUSCULAR HGB CONC 34 g/dL (31-37); MEAN CORPUSCULAR VOLUME 90 fL (79-100); MONO # 0.5 x10^3/uL (0.0-1.1); MONO % 5 % (0-9); NEUT % 83 % (31-73); PLATELET COUNT 234 x10^3/uL (140-400); RED BLOOD COUNT 5.39 x10^6/uL (4.30-5.70); RED CELL DISTRIBUTION WIDTH 12.8 % (11.5-14.5); WHITE BLOOD COUNT 10.8 x10^3/uL (4.0-11.0)
[2019-06-27] MEDS ORDERED: IV NORMAL SALINE 1000ML BAG 1,000 ML IV ONE ×3 (08:00→12:00)
[2019-06-27 08:02] LABS: PROTHROMBIN TIME PATIENT 13.8 SEC (11.7-14.0)
[2019-06-27 08:03] LABS: CALCIUM 9.2 mg/dL (8.5-10.1); GFR 94.3; POTASSIUM 3.8 mmol/L (3.5-5.1)
[2019-06-27 08:10] LABS: ALBUMIN 4.5 g/dL (3.4-5.0); ALBUMIN/GLOBULIN RATIO 1.4 (1.0-1.7); TOTAL BILIRUBIN 0.3 mg/dL (0.2-1.0); TOTAL PROTEIN 7.7 g/dL (6.4-8.2)
--- NOTE | 2019-06-27 08:27 | RAD ---
CT head and cervical spine without contrast History: Head injury, altered mental status, seizure Technique: Noncontrast CT imaging was performed of the head and cervical spine. Multiplanar reconstruction images are submitted. Exposure: One or more of the following individualized dose reduction techniques were utilized for this examination: 1. Automated exposure control 2. Adjustment of the mA and/or kV according to patient size 3. Use of iterative reconstruction technique. Head CT Comparison: August 05, 2018 Findings: There is mild motion. Ventricular size is stable. There is again incidental cavum septum pellucidum. There is no new intra-axial mass effect or midline shift. No acute hyperdense parenchymal hemorrhage is identified. There is appearance of some extra-axial subdural density in the anterior aspect of the left middle cranial fossa about 3 mm AP although appearance, including degree of internal density, is overall similar. There is some apparent encephalomalacia of the left temporal lobe along the cortical surface at site of previously seen seen parenchymal contusion. Paranasal sinuses are overall aerated. Mastoid air cells are aerated. No acute calvarial abnormality is identified. Impression: 1. No convincing acute parenchymal hemorrhage is identified. There is again appearance of thin subdural density of the anterior aspect of the left middle cranial fossa although stable appearance compared to July 2018 exam, possibly component of a vessel. There is some encephalomalacia with cortical involvement of left temporal lobe at site of previously seen parenchymal contusion. Cervical spine CT Comparison: August 03, 2017 Findings: No acute cervical spine fracture is identified. Vertebral body stature and AP alignment are within normal limits. Atlanto-axial distance is within normal limits. There is appropriate alignment of lateral masses of C1 relative to C2. Occipital condylar-C1 relationship is maintained. Impression: 1. No acute cervical spine fracture is identified. Electronically signed by: Hansel Gonzalez MD (06/27/2019 8:24 AM) [facility]
[2019-06-27 10:22] LABS: BARBITURATES NEG (NEG); BENZODIAZEPINES NEG (NEG); CANNABINOIDS POS (NEG); COCAINE NEG (NEG); METHADONE NEG (NEG); OPIATES NEG (NEG); PHENCYCLIDINE NEG (NEG)
[2019-06-27 10:24] LABS: AMPHETAMINE/METHAMPHETAMINE NEG (NEG)
[2019-06-27 13:38] VITALS: BP 132/78
== END 2019-06-27 14:24 | disposition home or self-care (01) ==
LOC: ER 07:35
DX: S00.03XA Contusion of scalp, initial encounter (principal); F10.229 Alcohol dependence with intoxication, unspecified; R55 Syncope and collapse; Y08.89XA Assault by other specified means, initial encounter; Y93.89 Activity, other specified; Y92.89 Other specified places as the place of occurrence of the external cause; Y99.8 Other external cause status
CPT/HCPCS: 36415; 70450; 72125; 80053; 80307; 85025; 85610; 85730; 96360; 96361; 99285; G0480; J7030

== ENCOUNTER 2021-01-27 23:02 | Emergency (ER) | payer SELFPAY ==
[~2021-01-27] VITALS: Ht 188 cm; Wt 109.0 kg
[~2021-01-27 23:02] MED LIST changes: +CYCL10TA19 PO; -CYCL10TA2 PO
[2021-01-28 00:13] VITALS: BP 155/87
[2021-01-28] MEDS ORDERED: SULF1TAB24 PO (00:54)
[2021-01-28] MEDS ORDERED: MUPI22OI2 TP (00:54)
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
== END 2021-01-28 01:07 | disposition home or self-care (01) ==
LOC: ER 23:02
DX: L03.032 Cellulitis of left toe (principal); L03.031 Cellulitis of right toe
CPT/HCPCS: 99283